=== PATIENT | female | born 1980 | race Caucasian/White ===

== ENCOUNTER 2018-10-22 17:02 | Emergency (ER) | payer OTHER ==
[2018-10-22 17:12] VITALS: BP 121/77
--- NOTE | 2018-10-22 17:42 | UC ---
Respiratory Complaint HPI - HPI Summary HPI Summary: PATIENT COMPLAINS OF ABOUT ONE WEEK OF SINUS CONGESTION, HEADACHE AND FATIGUE. PATIENT HAD SIMILAR SYMPTOMS 2 MONTHS AGO THAT LASTED UNTIL SHE TOOK AND COMPLETED A COURSE OF DOXYCYCLINE 2 WEEKS AGO. SHE FELT BETTER FOR ONE WEEK BEFORE HER SYMPTOMS RETURNED. SHE NOW ALSO COMPLAINS THAT SHE HAS PAIN AROUND HER LEFT EYEBROW AND THAT HER EYEBROW HAIR IS FALLING OUT. SHE DENIES ANY TRAUMA. NO VISUAL DISTURBANCES OR PAIN WITH EXTRAOCULAR MOVEMENTS. NO NAUSEA. NO FEVER. - History of Current Complaint Chief Complaint: UCRespiratory Stated Complaint: SINUS CONGESTION Time Seen by Provider: 10/22/18 17:38 Hx Obtained From: Patient Hx Last Menstrual Period: 10/07/18 Onset/Duration: Gradual Onset, Lasting Days, Still Present Timing: Constant Severity Initially: Moderate Severity Currently: Moderate Pain Intensity: 6 Pain Scale Used: 0-10 Numeric Aggravating Factors: Nothing Alleviating Factors: Nothing Associated Signs And Symptoms: Positive: Sinus Discomfort. Negative: Dyspnea, Fever, Chills, Wheezing - Allergies/Home Medications Allergies/Adverse Reactions: Allergies Allergy/AdvReac Type Severity Reaction Status Date / Time No Known Allergies Allergy Verified 10/22/18 17:13 Home Medications: Home Medications NK [No Home Medications Reported] 10/22/18 [History Confirmed 10/22/18] PMH/Surg Hx/FS Hx/Imm Hx Previously Healthy: Yes - Surgical History Surgical History: None - Family History Known Family History: Positive: Non-Contributory - Social History Alcohol Use: None Substance Use Type: Marijuana Substance Use Comment - Amount & Last Used: yesterday Smoking Status (MU): Former Smoker Household Exposure Type: Cigarettes Review of Systems All Other Systems Reviewed And Are Negative: Yes Constitutional: Positive: Fatigue ENT: Positive: Sinus Congestion Respiratory: Positive: Negative Cardiovascular: Positive: Negative Gastrointestinal: Positive: Negative Neurological: Positive: Headache Physical Exam Triage Information Reviewed: Yes Appearance: Well-Appearing, No Pain Distress, Well-Nourished Vital Signs: Initial Vital Signs Temp 98.6 F 10/22/18 17:09 Pulse 73 10/22/18 17:09 Resp 18 10/22/18 17:09 BP 121/77 10/22/18 17:09 Pulse Ox 100 10/22/18 17:09 Vital Signs Reviewed: Yes Eyes: Positive: Conjunctiva Clear ENT: Positive: Hearing grossly normal, Pharynx normal, TMs normal Neck: Positive: Supple, Nontender, No Lymphadenopathy Respiratory Exam: Normal Cardiovascular Exam: Normal Abdomen Description: Positive: Soft Musculoskeletal: Positive: No Edema Neurological: Positive: Alert Psychological: Positive: Age Appropriate Behavior Skin: Negative: Rashes Respiratory Course/Dx - Course Course Of Treatment: WILL CHECK CBC, CMP, TSH AND ESR. PT TO FOLLOW-UP WITH PCP. NO INDICATION FOR ANY FURTHER ABX AT PRESENT. - Differential Dx/Diagnosis Provider Diagnosis: Fatigue Discharge - Sign-Out/Discharge Documenting (check all that apply): Patient Departure All imaging exams completed and their final reports reviewed: No Studies - Discharge Plan Condition: Stable Disposition: HOME Patient Education Materials: Fatigue (ED) Referrals: Tano Contreras MD [Primary Care Provider] - 1 Week Additional Instructions: UNCLEAR ETIOLOGY OF YOUR SYMPTOMS. CHECK BLOOD COUNT, METABOLIC PANEL AND THYROID TODAY. FOLLOW-UP WITH DR. CONTRERAS FOR CONTINUED WORK-UP. - Billing Disposition and Condition Condition: STABLE Disposition: Home
[2018-10-23 10:07] LABS: ABS Basophils 0 10^3/ul (0-0.2); ABS Eosinophils 0.1 10^3/ul (0-0.6); ABS Lymphocytes 2.7 10^3/ul (1.0-4.8); ABS Monocytes 0.4 10^3/ul (0-0.8); ABS Neutrophils 4.3 10^3/ul (1.5-7.7); ABS Nucleated RBC 0 10^3/ul; Eosinophil % 0.9 %; Hematocrit 38 % (33-41); Hemoglobin 12.7 g/dL (12.0-16.0); Lymphocyte % 35.7 %; Mean Corpuscular HGB Conc 34 g/dL (31-36); Mean Corpuscular Hemoglobin 32 pg (27-31); Mean Corpuscular Volume 96 fL (80-97); Mean Platelet Volume 10.3 fL (7.4-10.4); Nucleated Red Blood Cells % 0; Platelet Count 193 10^3/uL (150-450); Red Blood Count 3.92 10^6 /uL (3.70-4.87); Red Cell Distribution Width 13 % (10.5-15); White Blood Count 7.5 10^3/uL (3.5-10.8)
[2018-10-23 10:23] LABS: Albumin 4.5 g/dL (3.2-5.2); Calcium 9.4 mg/dL (8.6-10.3); Potassium 3.8 mmol/L (3.5-5.0); Total Bilirubin 0.7 mg/dL (0.2-1.0)
[2018-10-23 10:29] LABS: BUN/Creatinine Ratio 15.4 (8-20); EGFR Non-African American 82.7 (>60); Globulin 2.3 g/dL (2-4); Total Protein 6.8 g/dL (6.4-8.9)
[2018-10-23 10:45] LABS: TSH (Thyroid Stimulating Horm) 1.71 mcIU/mL (0.34-5.60)
--- NOTE | 2018-10-23 15:45 | UC ---
- Progress Note Progress Note: 10/23/2018 CBC: WNL. CMP:WNL No change Carlie Mendoza PA-C Course/Dx - Diagnoses Provider Diagnoses: Fatigue Discharge - Sign-Out/Discharge Documenting (check all that apply): Post-Discharge Follow Up All imaging exams completed and their final reports reviewed: No Studies - Discharge Plan Condition: Stable Disposition: HOME Patient Education Materials: Fatigue (ED) Referrals: Tano Contreras MD [Primary Care Provider] - 1 Week Additional Instructions: UNCLEAR ETIOLOGY OF YOUR SYMPTOMS. CHECK BLOOD COUNT, METABOLIC PANEL AND THYROID TODAY. FOLLOW-UP WITH DR. CONTRERAS FOR CONTINUED WORK-UP. - Billing Disposition and Condition Condition: STABLE Disposition: Home
[2018-10-24 07:32] LABS: Erythrocyte Sed Rate 4 mm/Hr (0-20)
== END 2018-10-22 18:19 | disposition home or self-care (01) ==
LOC: UCEAST 17:02
DX: R53.83 Other fatigue (principal); Z87.891 Personal history of nicotine dependence
CPT/HCPCS: 36415; 80053; 84443; 85025; 85652; 99211; G0463

== ENCOUNTER 2019-06-12 13:44 | Emergency (ER) | payer OTHER ==
[2019-06-12 14:06] LABS: ABS Lymphocytes 2.1 10^3/ul (1.0-4.8); ABS Monocytes 0.4 10^3/ul (0-0.8); ABS Neutrophils 3.3 10^3/ul (1.5-7.7); Eosinophil % 0.8 %; Hematocrit 37 % (35-47); Hemoglobin 12.8 g/dL (12.0-16.0); Mean Corpuscular HGB Conc 34 g/dL (31-36); Mean Corpuscular Hemoglobin 33 pg (27-31); Mean Corpuscular Volume 96 fL (80-97); Mean Platelet Volume 9.5 fL (7.4-10.4); Platelet Count 199 10^3/uL (150-450); Red Blood Count 3.86 10^6 /uL (3.70-4.87); Red Cell Distribution Width 12 % (10-15); White Blood Count 5.8 10^3/uL (3.5-10.8)
[2019-06-12 14:30] LABS: INR 1.05 (0.82-1.09)
[2019-06-12 14:48] LABS: ALT 12 U/L (7-52); AST 16 U/L (13-39); Albumin 4.1 g/dL (3.2-5.2); Albumin/Globulin Ratio 1.5 (1-3); Alkaline Phosphatase 56 U/L (34-104); Anion Gap 4 mmol/L (2-11); BUN/Creatinine Ratio 11.6 (8-20); Blood Urea Nitrogen 14 mg/dL (6-24); CO2 Carbon Dioxide 27 mmol/L (22-32); Calcium 9.1 mg/dL (8.6-10.3); Chloride 107 mmol/L (101-111); EGFR African American 59.9 (>60); EGFR Non-African American 49.5 (>60); Globulin 2.8 g/dL (2-4); Glucose 84 mg/dL (70-100); Potassium 3.6 mmol/L (3.5-5.0); Sodium 138 mmol/L (135-145); Total Protein 6.9 g/dL (6.4-8.9)
[2019-06-12 16:35] LABS: HCG Pregnancy < 0.60 mIU/mL
[2019-06-12 16:40] LABS: T4, Total 8.22 mcg/dL (6.09-12.23)
[2019-06-12 16:43] LABS: TSH (Thyroid Stimulating Horm) 1.31 mcIU/mL (0.34-5.60)
[2019-06-12 17:03] LABS: Urine Appearance Clear; Urine Bacteria Absent (Absent); Urine Bilirubin Negative (Negative); Urine Blood 1+ (Negative); Urine Color Colorless; Urine Glucose Negative (Negative); Urine Ketones Negative (Negative); Urine Nitrite Negative (Negative); Urine Protein Negative (Negative); Urine Red Blood Cell Trace(0-2/hpf) (Absent); Urine Specific Gravity 1.003 (1.010-1.030); Urine Squamous Epithelial Cell Present (Absent); Urine Urobilinogen Negative (Negative); Urine White Blood Cell Absent (Absent)
--- NOTE | 2019-06-12 17:53 | ED ---
HPI Chest Pain - HPI Summary HPI Summary: Patient complains of left-sided chest pain radiating to left side ribs and left side shoulder starting at rest last night. Patient states chest pain described as shooting pain lasting seconds at a time, occurring every 15 minutes. No associated SOB. Also complains of not being able to finish meals past 2 days. Occasional worsening of left side pain after eating. Also worse with movement. Also complains of intermittent headache 2 days, intermittent neck pain 2 days, in urinary frequency. Denies fever, cough, sore throat, SOB, N/3/D, abdominal pain, change in BM. Denies history of blood clots, recent travel, recent surgery or trauma, hemoptysis, unilateral leg pain, OCPs or estrogen supplements, . - History of Current Complaint Chief Complaint: EDChestPainROMI Time Seen by Provider: 06/12/19 15:58 Hx Obtained From: Patient Hx Last Menstrual Period: 10/07/18 Onset/Duration: Started Hours Ago Timing: Intermittent, Lasting Seconds Initial Severity: Moderate Current Severity: Mild Pain Intensity: 2 Pain Scale Used: 0-10 Numeric Chest Pain Location: Left Anterior Chest Pain Radiates: Yes Chest Pain Radiates To:: Shoulder Character: Sharp/Stabbing Aggravating Factor(s): Position Alleviating Factor(s): Position Associated Signs and Symptoms: Positive: Chest Pain - Allergy/Home Medications Allergies/Adverse Reactions: Allergies Allergy/AdvReac Type Severity Reaction Status Date / Time wheat Allergy Anaphylatic Verified 06/12/19 13:54 Shock Home Medications: Home Medications Dextroamphetamine (NF) TAB [Dexedrine TAB*] 5 mg PO DAILY 06/12/19 [History Confirmed 06/12/19] Dextroamphetamine ER (Nf) 15 mg PO DAILY 06/12/19 [History Confirmed 06/12/19] clonazePAM TAB(*) [KlonoPIN TAB(*)] 0.5 mg PO BEDTIME PRN 06/12/19 [History Confirmed 06/12/19] PMH/Surg Hx/FS Hx/Imm Hx Endocrine/Hematology History: Denies: Hx Anticoagulant Therapy Cardiovascular History: Denies: Hx Pacemaker/ICD History: Denies: Hx Dialysis Sensory History: Denies: Hx Eye Prosthesis Opthamlomology History: Denies: Hx Legally Blind EENT History: Denies: Hx Deafness Neurological History: Denies: Hx Dementia Infectious Disease History: No Infectious Disease History: Denies: Traveled Outside the [place] in Last 30 Days - Family History Known Family History: Positive: Non-Contributory - Social History Alcohol Use: None Substance Use Type: Reports: Marijuana Substance Use Comment - Amount & Last Used: yesterday Smoking Status (MU): Former Smoker Review of Systems Constitutional: Negative Eyes: Negative ENT: Negative Positive: Chest Pain Respiratory: Negative Gastrointestinal: Negative Positive: frequency Musculoskeletal: Negative Skin: Negative Positive: Headache Psychological: Normal All Other Systems Reviewed And Are Negative: Yes Physical Exam - Summary Physical Exam Summary: Left anterior chest mildly tender to palpation. No pain with movement of left arm. No pain with palpation of left shoulder or left side lateral chest wall. Mild pain in left upper quadrant and epigastrically. Normal exam of other abdominal quadrants. Triage Information Reviewed: Yes Vital Signs On Initial Exam: Initial Vitals Temp Pulse Resp BP Pulse Ox 98.2 F 80 16 127/72 100 06/12/19 13:52 06/12/19 13:52 06/12/19 13:52 06/12/19 13:52 06/12/19 13:52 Vital Signs Reviewed: Yes Appearance: Positive: Well-Appearing Skin: Positive: Warm Head/Face: Positive: Normal Head/Face Inspection Eyes: Positive: Normal Neck: Positive: Supple Respiratory/Lung Sounds: Positive: Clear to Auscultation Cardiovascular: Positive: Normal Abdomen Description: Positive: Other: Musculoskeletal: Positive: Normal Neurological: Positive: Normal Psychiatric: Positive: Normal AVPU Assessment: Alert - Courtney Coma Scale Best Eye Response: 4 - Spontaneous Best Motor Response: 6 - Obeys Commands Best Verbal Response: 5 - Oriented Coma Scale Total: 15 Procedures - Sedation Patient Received Moderate/Deep Sedation with Procedure: No Diagnostics - Vital Signs Vital Signs Temp Pulse Resp BP Pulse Ox 06/12/19 13:52 98.2 F 80 16 127/72 100 - Laboratory Lab Results: Lab Results 06/12/19 06/12/19 06/12/19 Range/Units 13:58 13:58 13:58 WBC 5.8 (3.5-10.8) 10^3/uL RBC 3.86 (3.70-4.87) 10^6 /uL Hgb 12.8 (12.0-16.0) g/dL Hct 37 (35-47) % MCV 96 (80-97) fL MCH 33 H (27-31) pg MCHC 34 (31-36) g/dL RDW 12 (10-15) % Plt Count 199 (150-450) 10^3/uL MPV 9.5 (7.4-10.4) fL Neut % (Auto) 56.4 % Lymph % (Auto) 36.0 % Clay % (Auto) 6.4 % Eos % (Auto) 0.8 % Baso % (Auto) 0.4 % Absolute Neuts (auto) 3.3 (1.5-7.7) 10^3/ul Absolute Lymphs (auto) 2.1 (1.0-4.8) 10^3/ul Absolute Monos (auto) 0.4 (0-0.8) 10^3/ul Absolute Eos (auto) 0.0 (0-0.6) 10^3/ul Absolute Basos (auto) 0.0 (0-0.2) 10^3/ul Absolute Nucleated RBC 0.0 10^3/ul Nucleated RBC % 0.0 INR (Anticoag Therapy) 1.05 (0.82-1.09) Sodium 138 (135-145) mmol/L Potassium 3.6 (3.5-5.0) mmol/L Chloride 107 (101-111) mmol/L Carbon Dioxide 27 (22-32) mmol/L Anion Gap 4 (2-11) mmol/L BUN 14 (6-24) mg/dL Creatinine 1.21 H (0.51-0.95) mg/dL Est GFR ( Amer) 59.9 (>60) Est GFR (Non-Af Amer) 49.5 (>60) BUN/Creatinine Ratio 11.6 (8-20) Glucose 84 (70-100) mg/dL Calcium 9.1 (8.6-10.3) mg/dL Total Bilirubin 0.50 (0.2-1.0) mg/dL AST 16 (13-39) U/L ALT 12 (7-52) U/L Alkaline Phosphatase 56 (34-104) U/L Troponin I 0.00 (<0.04) ng/mL Total Protein 6.9 (6.4-8.9) g/dL Albumin 4.1 (3.2-5.2) g/dL Globulin 2.8 (2-4) g/dL Albumin/Globulin Ratio 1.5 (1-3) Lipase 17 (11.0-82.0) U/L TSH 1.31 (0.34-5.60) mcIU/mL Thyroxine (T4) 8.22 (6.09-12.23) mcg/dL Total T3 105 (87-178) ng/dL Beta HCG, Quant < 0.60 mIU/mL Urine Color Urine Appearance Urine pH (5-9) Ur Specific [place] (1.010-1.030) Urine Protein (Negative) Urine Ketones (Negative) Urine Blood (Negative) Urine Nitrate (Negative) Urine Bilirubin (Negative) Urine Urobilinogen (Negative) Ur Leukocyte Esterase (Negative) Urine WBC (Auto) (Absent) Urine RBC (Auto) (Absent) Ur Squamous Epith Cells (Absent) Urine Bacteria (Absent) Urine Glucose (Negative) 06/12/19 Range/Units 16:35 WBC (3.5-10.8) 10^3/uL RBC (3.70-4.87) 10^6 /uL Hgb (12.0-16.0) g/dL Hct (35-47) % MCV (80-97) fL MCH (27-31) pg MCHC (31-36) g/dL RDW (10-15) % Plt Count (150-450) 10^3/uL MPV (7.4-10.4) fL Neut % (Auto) % Lymph % (Auto) % Clay % (Auto) % Eos % (Auto) % Baso % (Auto) % Absolute Neuts (auto) (1.5-7.7) 10^3/ul Absolute Lymphs (auto) (1.0-4.8) 10^3/ul Absolute Monos (auto) (0-0.8) 10^3/ul Absolute Eos (auto) (0-0.6) 10^3/ul Absolute Basos (auto) (0-0.2) 10^3/ul Absolute Nucleated RBC 10^3/ul Nucleated RBC % INR (Anticoag Therapy) (0.82-1.09) Sodium (135-145) mmol/L Potassium (3.5-5.0) mmol/L Chloride (101-111) mmol/L Carbon Dioxide (22-32) mmol/L Anion Gap (2-11) mmol/L BUN (6-24) mg/dL Creatinine (0.51-0.95) mg/dL Est GFR ( Amer) (>60) Est GFR (Non-Af Amer) (>60) BUN/Creatinine Ratio (8-20) Glucose (70-100) mg/dL Calcium (8.6-10.3) mg/dL Total Bilirubin (0.2-1.0) mg/dL AST (13-39) U/L ALT (7-52) U/L Alkaline Phosphatase (34-104) U/L Troponin I (<0.04) ng/mL Total Protein (6.4-8.9) g/dL Albumin (3.2-5.2) g/dL Globulin (2-4) g/dL Albumin/Globulin Ratio (1-3) Lipase (11.0-82.0) U/L TSH (0.34-5.60) mcIU/mL Thyroxine (T4) (6.09-12.23) mcg/dL Total T3 (87-178) ng/dL Beta HCG, Quant mIU/mL Urine Color Colorless Urine Appearance Clear Urine pH 7.0 (5-9) Ur Specific [place] 1.003 L (1.010-1.030) Urine Protein Negative (Negative) Urine Ketones Negative (Negative) Urine Blood 1+ A (Negative) Urine Nitrate Negative (Negative) Urine Bilirubin Negative (Negative) Urine Urobilinogen Negative (Negative) Ur Leukocyte Esterase Negative (Negative) Urine WBC (Auto) Absent (Absent) Urine RBC (Auto) Trace(0-2/hpf) (Absent) Ur Squamous Epith Cells Present A (Absent) Urine Bacteria Absent (Absent) Urine Glucose Negative (Negative) Result Diagrams: 06/12/19 13:58 06/12/19 13:58 Lab Statement: Any lab studies that have been ordered have been reviewed, and results considered in the medical decision making process. Chest Pain Course/Dx - Course Course Of Treatment: Patient complains of left-sided chest pain radiating to left side ribs and left side shoulder starting at rest last night. Patient states chest pain described as shooting pain lasting seconds at a time, occurring every 15 minutes. No associated SOB. Also complains of not being able to finish meals past 2 days. Occasional worsening of left side pain after eating. Also worse with movement. Also complains of intermittent headache 2 days, intermittent neck pain 2 days, in urinary frequency. Denies fever, cough , sore throat, SOB, N/3/D, abdominal pain, change in BM. Denies history of blood clots, recent travel, recent surgery or trauma, hemoptysis, unilateral leg pain, OCPs or estrogen supplements, . Vital signs within normal limits. Labs unremarkable. Urine negative. PERC negative. Ultrasound gallbladder negative. EKG sinus rhythm, heart rate of 70, same as prior. - Diagnoses Provider Diagnoses: Atypical chest pain Discharge ED - Sign-Out/Discharge Documenting (check all that apply): Patient Departure - Discharge Plan Condition: Stable Disposition: HOME Patient Education Materials: Chest Wall Pain (ED) Referrals: Su Sanchez MD [Primary Care Provider] - Additional Instructions: Take ibuprofen 600mg every 6 hours for 3 days for left side chest pain. Return to the ED for any worsening symptoms. - Billing Disposition and Condition Condition: STABLE Disposition: Home
[2019-06-12 18:06] VITALS: BP 00/00
== END 2019-06-12 18:20 | disposition home or self-care (01) ==
LOC: ED 13:44
DX: R07.89 Other chest pain (principal); R10.12 Left upper quadrant pain; R10.13 Epigastric pain; R51 Headache; M54.2 Cervicalgia; R35.0 Frequency of micturition; K76.0 Fatty (change of) liver, not elsewhere classified; Z32.02 Encounter for pregnancy test, result negative; Z87.891 Personal history of nicotine dependence
CPT/HCPCS: 36415; 76705; 80053; 81003; 81015; 83690; 84436; 84443; 84479; 84484; 84702; 85025; 85610; 93005; 99282

== ENCOUNTER 2019-06-15 14:44 | Emergency (ER) | payer OTHER ==
--- NOTE | 2019-06-15 16:14 | ED ---
Complex/Multi-Sys Presentation - HPI Summary HPI Summary: This patient is a 38 year old F with a hx of kidney stones presenting to ED with a chief complaint of intermittent left flank pain since one month ago. Patient states three days ago, the pain radiated upwards to the left shoulder, and with twisting or bending it is described as stabbing. Patient came to [facility] three days ago and received a gallbladder US which was negative. Today, patient states the pain feels like a pressure in her left chest and abdominal cavity. Patient also reports decreased appetite in the past two months recently. [place] Patient states she is not sexually active. She reports her menstrual cycle is very normal. Patient has been once when she was 20 which she had electively aborted by a procedure that she does not remember in too much detail. The patient rates the pain 3/10 in severity. Symptoms aggravated by bending/movement. Symptoms alleviated by nothing. Patient reports hematuria, dizziness, nausea. Patient denies dysuria, burning upon urination, vaginal bleeding, vaginal discharge, vomiting. - History Of Current Complaint Chief Complaint: EDChestWallPain Time Seen by Provider: 06/15/19 15:59 Hx Obtained From: Patient Onset/Duration: Gradual Onset, Lasting Weeks - Since one month ago, Still Present Timing: Intermittent, Lasting: Severity Currently: Mild Severity Initially: Mild Location: Pain At: - Left flank Aggravating Factor(s): Nothing Alleviating Factor(s): Nothing Associated Signs And Symptoms: Positive: Nausea, Other - Hematuria, L flank pain. Negative: Vomiting - Allergies/Home Medications Allergies/Adverse Reactions: Allergies Allergy/AdvReac Type Severity Reaction Status Date / Time wheat Allergy Anaphylatic Verified 06/15/19 14:53 Shock PMH/Surg Hx/FS Hx/Imm Hx Endocrine/Hematology History: Denies: Hx Anticoagulant Therapy Cardiovascular History: Denies: Hx Pacemaker/ICD History: Reports: Hx Kidney Stones Denies: Hx Dialysis Sensory History: Denies: Hx Eye Prosthesis, Hx Legally Blind, Hx Deafness Opthamlomology History: Denies: Hx Eye Prosthesis, Hx Legally Blind Neurological History: Denies: Hx Dementia - Surgical History Surgery Procedure, Year, and Place: Infectious Disease History: No Infectious Disease History: Denies: Traveled Outside the [place] in Last 30 Days - Family History Known Family History: Positive: Other - Kidney stones - Social History Alcohol Use: None Hx Substance Use: Yes Substance Use Type: Reports: Marijuana Substance Use Comment - Amount & Last Used: Daily, patient uses marijuana edibles Hx Tobacco Use: Yes Smoking Status (MU): Former Smoker Review of Systems Gastrointestinal: Other - Decreased appetite Positive: Nausea. Negative: Vomiting Genitourinary: Negative - Vaginal bleeding, vaginal discharge Positive: flank pain - L, hematuria. Negative: burning, dysuria Musculoskeletal: Other - L shoulder pain Neurological: Other - Dizziness All Other Systems Reviewed And Are Negative: Yes Physical Exam - Summary Physical Exam Summary: Constitutional: Well-developed, Well-nourished, Alert. (-) Distressed Skin: Warm, Dry HENT: Normocephalic; Atraumatic Eyes: Conjunctiva normal Neck: Musculoskeletal ROM normal neck. (-) JVD, (-) Stridor, (-) Tracheal deviation Cardio: Rhythm regular, rate normal, Heart sounds normal; Intact distal pulses; The pedal pulses are 2+ and symmetric. Radial pulses are 2+ and symmetric. Pulmonary/Chest wall: Effort normal. (-) Respiratory distress, (-) Wheezes, (-) Rales Abd: left CVA tenderness, suprapubic fullness but nontender Musculoskeletal: (-) Edema Neuro: Alert, Oriented x3 Psych: Mood and affect Normal Triage Information Reviewed: Yes Vital Signs On Initial Exam: Initial Vitals Temp Pulse Resp BP Pulse Ox 99.0 F 81 18 127/65 99 06/15/19 14:50 06/15/19 14:50 06/15/19 14:50 06/15/19 14:50 06/15/19 14:50 Vital Signs Reviewed: Yes Procedures - Sedation Patient Received Moderate/Deep Sedation with Procedure: No Diagnostics - Vital Signs Vital Signs Temp Pulse Resp BP Pulse Ox 06/15/19 14:50 99.0 F 81 18 127/65 99 - Laboratory Result Diagrams: 06/15/19 16:25 06/15/19 16:25 Lab Statement: Any lab studies that have been ordered have been reviewed, and results considered in the medical decision making process. - Ultrasound Abdomen Ultrasound Interpretation Completed By: Radiologist Summary of Ultrasound Findings: 1. THE URINARY JETS ARE PRESENT BILATERALLY. 2. 2 HYPERECHOIC FOCI IN THE LEFT KIDNEY (BETWEEN 0.4-0.5 CM) COULD BE REDEVELOPMENT SPECIALIST OF NONS HADOW ING CALCULI. THE LEFT RENAL PELVIS IS MILDLY DILATED. 3. A SMALL PROBABLE ANGIOMYOLIPOMA IN THE INFERIOR POLE THE RIGHT KIDNEY IS INCIDENTAL. Dr. Vazquez has reviewed this radiology report. - EKG 1448 Cardiac Rate: NL - 71 BPM EKG Rhythm: Sinus Rhythm Summary of EKG Findings: EKG at 1448 revealed NSR at 71 BPM, borderline right axis deviation, no STEMI, no change from prior. Dr. Vazquez has reviewed and interpreted this EKG. Re-Evaluation - Re-Evaluation First Eval Re-Evaluation Time: 18:42 Comment: Discussed results with patient. Patient will be discharged home with dx of renal colic. Patient understands and agrees with this plan. Complex Multi-Symp Course/Dx Course Of Treatment: This patient is a 38 year old F with a hx of kidney stones presenting to ED with a chief complaint of intermittent left flank pain since one month ago. In the ED course, patient received lactated ringers. She refused pain medication. Blood work revealed RBC 3.64, Hgb 11.8, MCH 33. Patients GFR is 86 and creatinine is 0.75, both of which are better than they have been recently. EKG at 1448 revealed NSR at 71 BPM, borderline right axis deviation, no STEMI, no change from prior. Abdomen/bladder US revealed 1. THE URINARY JETS ARE PRESENT BILATERALLY. 2. 2 HYPERECHOIC FOCI IN THE LEFT KIDNEY ( BETWEEN 0.4-0.5 CM) COULD BE REDEVELOPMENT SPECIALIST OF NONS HADOW ING CALCULI. THE LEFT RENAL PELVIS IS MILDLY DILATED. 3. A SMALL PROBABLE ANGIOMYOLIPOMA IN THE INFERIOR POLE THE RIGHT KIDNEY IS INCIDENTAL. UA negative for UTI. Post-void residual volume is 20mL, so I do not think the patient is having urinary retention as the patient has urinary jets present bilaterally. Discussed results with patient. Patient will be discharged home with dx of renal colic. Patient understands and agrees with this plan. - Diagnoses Provider Diagnoses: Renal colic Discharge ED - Sign-Out/Discharge Documenting (check all that apply): Patient Departure - Discharge - Discharge Plan Condition: Stable Disposition: HOME Patient Education Materials: Renal Colic (ED) Referrals: Su Sanchez MD [Primary Care Provider] - - Billing Disposition and Condition Condition: STABLE Disposition: Home - Attestation Statements Document Initiated by Scribe: Yes Documenting Scribe: Kashif Muñoz Provider For Whom Danyibe is Documenting (Include Credential): Guilherme Vazquez MD Scribe Attestation: I, Kashif Muñoz, scribed for Guilherme Vazquez MD on 06/15/19 at 1913. Scribe Documentation Reviewed: Yes Provider Attestation: The documentation as recorded by the scribe, Kashif Muñoz accurately reflects the service I personally performed and the decisions made by me, Guilherme Vazquez MD Status of Scribe Document: Viewed
[2019-06-15] MEDS ORDERED: Lactated Ringers 1000 ML Bag* 1,000 ML IV ONE (16:26)
[2019-06-15 16:43] LABS: ABS Eosinophils 0.1 10^3/ul (0-0.6); ABS Lymphocytes 2.4 10^3/ul (1.0-4.8); ABS Monocytes 0.4 10^3/ul (0-0.8); ABS Neutrophils 3.6 10^3/ul (1.5-7.7); Eosinophil % 0.8 %; Hematocrit 35 % (35-47); Hemoglobin 11.8 g/dL (12.0-16.0); Lymphocyte % 37.6 %; Mean Corpuscular HGB Conc 34 g/dL (31-36); Mean Corpuscular Hemoglobin 33 pg (27-31); Mean Corpuscular Volume 96 fL (80-97); Mean Platelet Volume 9.5 fL (7.4-10.4); Nucleated Red Blood Cells % 0.1; Platelet Count 183 10^3/uL (150-450); Red Blood Count 3.64 10^6 /uL (3.70-4.87); Red Cell Distribution Width 12 % (10-15); White Blood Count 6.5 10^3/uL (3.5-10.8)
[2019-06-15 16:48] LABS: INR 1.09 (0.82-1.09)
[2019-06-15 16:55] LABS: Albumin 4.1 g/dL (3.2-5.2); Albumin/Globulin Ratio 1.5 (1-3); BUN/Creatinine Ratio 17.3 (8-20); Calcium 9.2 mg/dL (8.6-10.3); EGFR African American 104.1 (>60); Globulin 2.7 g/dL (2-4); Potassium 3.5 mmol/L (3.5-5.0); Total Bilirubin 0.4 mg/dL (0.2-1.0); Total Protein 6.8 g/dL (6.4-8.9)
[2019-06-15 18:37] LABS: Urine Appearance Clear; Urine Bilirubin Negative (Negative); Urine Blood Negative (Negative); Urine Color Straw; Urine Glucose Negative (Negative); Urine Ketones Negative (Negative); Urine Nitrite Negative (Negative); Urine Protein Negative (Negative); Urine Specific Gravity 1.006 (1.010-1.030); Urine Urobilinogen Negative (Negative)
[2019-06-15 19:03] VITALS: BP 116/88
== END 2019-06-15 19:03 | disposition home or self-care (01) ==
LOC: ED 14:44
DX: N23 Unspecified renal colic (principal); Z87.891 Personal history of nicotine dependence; Z87.442 Personal history of urinary calculi
CPT/HCPCS: 36415; 76770; 80053; 81003; 84484; 85025; 85610; 93005; 96360; 99283

== ENCOUNTER 2019-09-13 14:35 | Emergency (ER) | payer OTHER ==
--- NOTE | 2019-09-13 15:18 | ED ---
GI/ HPI - HPI Summary HPI Summary: Patient is a 38 y/o F presenting to [facility] with complaints of epigastric pain. She believes that she accidentally swallowed some chips of glass with her lunch today. Patient states that she had spit out one of these pieces of glass and slightly cut her finger with it. Pain is characterized as sharp. No vomiting noted. No PMHx noted. She denies Hx of abdominal surgeries. NKDA reported. She denies tobacco, alcohol, and substance usage. Home medications and allergies are reviewed. - History of Current Complaint Chief Complaint: EDAbdPain Time Seen by Provider: 09/13/19 15:02 Stated Complaint: ACCIDENTLY ATE GLASS PER PT Hx Obtained From: Patient Hx Last Menstrual Period: 10/07/18 Onset/Duration: Still Present Timing: Constant Severity: Severe Current Severity: Severe Pain Intensity: 7 Location of Pain: Epigastric Pain Characteristics: Sharp Associated Signs and Symptoms: Negative: Vomiting, Fever - Allergy/Home Medications Allergies/Adverse Reactions: Allergies Allergy/AdvReac Type Severity Reaction Status Date / Time wheat Allergy Anaphylatic Verified 09/13/19 14:47 Shock Home Medications: Home Medications Albuterol HFA INHALER* [Ventolin HFA Inhaler*] 2 puff INH Q6H PRN 09/13/19 [ History Confirmed 09/13/19] DOXYcycline CAP(*) [DOXYcycline 100MG CAP(*)] 100 mg PO BID 09/13/19 [History Confirmed 09/13/19] PMH/Surg Hx/FS Hx/Imm Hx Endocrine/Hematology History: Denies: Hx Anticoagulant Therapy Cardiovascular History: Denies: Hx Pacemaker/ICD History: Reports: Hx Kidney Stones Denies: Hx Dialysis Sensory History: Denies: Hx Eye Prosthesis, Hx Legally Blind, Hx Deafness Opthamlomology History: Denies: Hx Eye Prosthesis, Hx Legally Blind Neurological History: Denies: Hx Dementia - Surgical History Surgery Procedure, Year, and Place: Infectious Disease History: No Infectious Disease History: Denies: Traveled Outside the [place] in Last 30 Days - Family History Known Family History: Positive: Other - Kidney stones - Social History Alcohol Use: None Hx Substance Use: Yes Substance Use Type: Reports: Marijuana Substance Use Comment - Amount & Last Used: Daily, patient uses marijuana edibles Hx Tobacco Use: Yes Smoking Status (MU): Former Smoker Review of Systems Negative: Fever Positive: Abdominal Pain. Negative: Vomiting All Other Systems Reviewed And Are Negative: Yes Physical Exam - Summary Physical Exam Summary: Constitutional: Well-developed, Well-nourished, Alert. (-) Distressed Skin: Warm, Dry HENT: Normocephalic; Atraumatic Eyes: Conjunctiva normal Neck: Musculoskeletal ROM normal neck. (-) JVD, (-) Stridor, (-) Tracheal deviation Cardio: Rhythm regular, rate normal, Heart sounds normal; Intact distal pulses; Radial pulses are 2+ and symmetric. (-) Murmur Pulmonary/Chest wall: Effort normal. (-) Respiratory distress, (-) Wheezes, (-) Rales Abd: Soft, Mild Epigastric Tenderness, (-) Distension, (-) Guarding, (-) Rebound Musculoskeletal: (-) Edema Lymph: (-) Cervical adenopathy Neuro: Alert, Oriented x3 Psych: Mood and affect Normal Triage Information Reviewed: Yes Vital Signs On Initial Exam: Initial Vitals Temp Pulse Resp BP Pulse Ox 99.8 F 87 17 105/76 97 09/13/19 14:43 09/13/19 14:43 09/13/19 14:43 09/13/19 14:43 09/13/19 14:43 Vital Signs Reviewed: Yes Procedures - Sedation Patient Received Moderate/Deep Sedation with Procedure: No Diagnostics - Vital Signs Vital Signs Temp Pulse Resp BP Pulse Ox 09/13/19 14:43 99.8 F 87 17 105/76 97 - Laboratory Result Diagrams: 09/13/19 15:18 09/13/19 15:18 Lab Statement: Any lab studies that have been ordered have been reviewed, and results considered in the medical decision making process. - Radiology CXR Radiology Interpretation Completed By: Radiologist Summary of Radiographic Findings: CXR IMPRESSION: NO ACTIVE CARDIOPULMONARY DISEASE. NO RADIOPAQUE FOREIGN BODY. THIS REPORT WAS REVIEWED BY ED PHYSICIAN. ABDOMEN X-RAY Radiology Interpretation Completed By: Radiologist Summary of Radiographic Findings: ABDOMEN X-RAY IMPRESSION: NONOBSTRUCTIVE BOWEL GAS PATTERN. LARGE AMOUNT OF STOOL THROUGHOUT THE COLON. NO. RADIOPAQUE FOREIGN BODY. THIS REPORT WAS REVIEWED BY ED PHYSICIAN. GIGU Course/Dx - Course Course Of Treatment: Patient is here after actually swallowed some glass. Patient does have epigastric pain. Patient had x-rays to hypertension and 5 or body which were negative. Patient wasn't [facility] a GI was called and they performed an endoscopy which did not show any foreign body. - Diagnoses Provider Diagnoses: Foreign body ingestion - Physician Notifications Discussed Care Of Patient With: Palma Toribio Time Discussed With Above Provider: 16:17 Instructed by Provider To: Other - Patient's case was discussed with Dr. Pallavi Hurd, Dr Toribio to do upper endoscopy in ED. 1823 - GI procedure completed, patient to be discharged to home. Discharge ED - Sign-Out/Discharge Documenting (check all that apply): Patient Departure - discharge - Discharge Plan Condition: Stable Disposition: HOME Patient Education Materials: Acute Abdominal Pain (ED), Foreign Body Ingestion (ED) Referrals: Su Sanchez MD [Primary Care Provider] - 3 Days Additional Instructions: TAKE MAALOX FOR PAIN. RETURN TO ED FOR SEVERE ABDOMINAL PAIN, VOMITING BLOOD, OR ANY OTHER CONCERNING SYMPTOMS. PLEASE FOLLOW UP WITH YOUR PRIMARY CARE PHYSICIAN WITHIN THREE DAYS. - Billing Disposition and Condition Condition: STABLE Disposition: Home - Attestation Statements Document Initiated by Daniel: Yes Documenting Scribe: TRENT JIMENEZ Provider For Whom Daniel is Documenting (Include Credential): SHAGUFTA SIERRA MD Scribe Attestation: TRENT Payne, scribed for SHAGUFTA SIERRA MD on 09/13/19 at 2117. Scribe Documentation Reviewed: Yes Provider Attestation: The documentation as recorded by the TRENT trinidad accurately reflects the service I personally performed and the decisions made by me, SHAGUFTA SIERRA MD Status of Scribe Document: Viewed
[2019-09-13 15:37] LABS: ABS Basophils 0.1 10^3/ul (0-0.2); ABS Eosinophils 0.1 10^3/ul (0-0.6); ABS Lymphocytes 2.4 10^3/ul (1.0-4.8); ABS Monocytes 0.4 10^3/ul (0-0.8); ABS Neutrophils 3.5 10^3/ul (1.5-7.7); Eosinophil % 1.2 %; Hematocrit 36 % (35-47); Hemoglobin 12.2 g/dL (12.0-16.0); Lymphocyte % 37.7 %; Mean Corpuscular HGB Conc 34 g/dL (31-36); Mean Corpuscular Hemoglobin 33 pg (27-31); Mean Corpuscular Volume 95 fL (80-97); Mean Platelet Volume 9.4 fL (7.4-10.4); Platelet Count 213 10^3/uL (150-450); Red Blood Count 3.75 10^6 /uL (3.70-4.87); Red Cell Distribution Width 13 % (10-15); White Blood Count 6.5 10^3/uL (3.5-10.8)
[2019-09-13 16:02] LABS: Anion Gap 6 mmol/L (2-11); BUN/Creatinine Ratio 17.3 (8-20); Blood Urea Nitrogen 13 mg/dL (6-24); CO2 Carbon Dioxide 27 mmol/L (22-32); Calcium 9.3 mg/dL (8.6-10.3); Chloride 106 mmol/L (101-111); EGFR African American 104.1 (>60); Glucose 92 mg/dL (70-100); Potassium 3.8 mmol/L (3.5-5.0); Sodium 139 mmol/L (135-145)
[2019-09-13 16:17] LABS: HCG Pregnancy < 0.60 mIU/mL
[2019-09-13] MEDS ORDERED: fentaNYL* 50 MCG/ML 2 ML VIAL (100 MCG VIAL) ONE (16:41)
[2019-09-13] MEDS ORDERED: Midazolam* 1 MG/ML 10 ML VIAL (10 MG) ONE (16:41)
[2019-09-13] MEDS ORDERED: diPHENhydraMINE IV* 50 MG/ML 1 ml VIAL (BENADRYL) ONE (17:33)
[2019-09-13] MEDS ORDERED: Al Hydrox/Mg Hydrox/Simet LIQ* 30 ML UDC PO ONE (17:56)
[2019-09-13 18:57] VITALS: BP 101/68
--- NOTE | 2019-09-13 20:14 | CONS ---
GASTROENTEROLOGY CONSULT REPORT: DATE OF CONSULT: 09/13/19 REQUESTING PROVIDER: ED. The patient seen in the ED. REASON FOR CONSULT: The patient concerned she ate glass accidently. HISTORY OF PRESENT ILLNESS: Ms. Adams is a 38-year-old woman with history of kidney stones and insomnia, who presents to the ED after she is concerned that she ingested glass. The patient was eating guacamole out of a glass bowl today. She noticed that most of her bites were crunchy. She reached into her mouth to grab a piece of the food out and cut her finger on what appeared to be a piece of glass. She then inspected the bowl and noted that there was a small piece of the glass that was broken. She is concerned that she did swallow some of the crunchy- tasting guacamole as she is worried it may have type glass in it. She now had some epigastric discomfort. No nausea or vomiting. Complains of some indigestion feeling. Temperature 99.8. Vitals otherwise normal. Labs normal. Chest x-ray was negative. Abdominal x-ray demonstrated a large amount of stool throughout the colon without other acute findings. PAST MEDICAL HISTORY: 1. Nephrolithiasis. 2. Insomnia. PAST SURGICAL HISTORY: Cyst from above her eye removed, left knee surgery, bunionectomy. HOME MEDICATIONS: Currently on doxycycline for throat infection. ALLERGIES: WHEAT. FAMILY HISTORY: No relevant family history. SOCIAL HISTORY: Not currently working. Nonsmoker. No alcohol use. No drug use. REVIEW OF SYSTEMS: A complete review of systems negative except as mentioned above. PHYSICAL EXAM: Vital Signs: Temp 99.8, heart rate in the 70s, blood pressure 108/74, 100% on room air. General: Pleasant, well-appearing woman, in no acute distress. HEENT: Mucous membranes are moist. Cardiovascular: Regular rate and rhythm. Pulmonary: Breathing comfortably. Abdomen: Soft. Mildly tender in the epigastric area. No guarding or rebound tenderness. Extremities : No edema. Skin: No jaundice. Neuro: A and O x3. LABORATORY DATA: Labs reviewed and normal. IMAGING: Imaging as mentioned in the HPI, the chest x-ray was negative for acute findings. The abdominal x-ray noted a nonobstructive stool pattern with large amount of stool IMPRESSION AND RECOMMENDATIONS: Ms. Adams is a 38-year-old woman who presents after possibly ingesting a small piece of glass accidently. The patient does have some ongoing tenderness in her epigastric area. We will plan for quick EGD in the ER to ensure that there is no visible pieces of glass seen in the upper GI tract. Reviewed risk of the procedure. The patient in agreement with proceeding with this plan. Thank you very much for this consult. [id number]/[facility] #: [id number] LAYNE
--- NOTE | 2019-09-14 10:14 | PRO ---
DATE OF PROCEDURE: 09/13/19 - EMERGENCY DEPT PROCEDURE: EGD. REFERRING PROVIDER: ED. INDICATION: The patient concerned that she ingested a small piece of glass. Having epigastric pain. MEDICATIONS GIVEN: 1. Midazolam 50 mg IV. 2. Fentanyl 150 mcg IV. 3. Benadryl 50 mg IV. DESCRIPTION OF PROCEDURE: Full disclosure of risks was reviewed with the patient as detailed on the consent form. The patient was placed in the left lateral decubitus position and monitored with continuous pulse oximetry, capnography, interval blood pressure monitoring, and direct observation. A bite -block was placed between the patient's teeth. An adult gastroscope was then inserted into the patient's mouth and advanced down the esophagus, into the stomach, and into the distal duodenum. Findings and interventions are described below. FINDINGS: Esophagus was a normal tubular structure without rings or strictures. The GE junction was regular and recorded at 39 cm. There was no esophagitis. No abrasions or evidence of glass anywhere within the esophagus. The scope was then advanced into the stomach. Stomach was examined in the forward and retroflexed views. Gastric mucosa was normal in appearance. I examined the stomach very thoroughly on several sweeps. There was no evidence of any pieces of glass embedded in the gastric mucosa. No evidence of glass seen within the stomach contents, which were completely suctioned. No fresh or old blood. The scope was then advanced into the duodenum until we reached the third portion. Again, I examined the area very closely. No evidence of glass or abrasions. The scope was then withdrawn from the patient. The patient tolerated the procedure well and was recovered in the GI recovery area. IMPRESSION: 1. Complete upper endoscopy to distal duodenum. 2. No foreign body seen within the upper GI tract. FOLLOWUP: 1. Okay to advance diet. 2. If abdominal pain persists, then I would recommend a CT abdomen and pelvis. Thank you very much for this consult. [id number]/[facility] #: [id number] LAYNE
== END 2019-09-13 18:57 | disposition home or self-care (01) ==
LOC: ED 14:35
DX: R10.13 Epigastric pain (principal); T18.9XXA Foreign body of alimentary tract, part unspecified, initial encounter; X58.XXXA Exposure to other specified factors, initial encounter; Y92.9 Unspecified place or not applicable; Z87.442 Personal history of urinary calculi; Z87.891 Personal history of nicotine dependence
CPT/HCPCS: 36415; 71045; 74019; 80048; 83690; 84702; 85025; 99156; 99157; 99283; A9270-GY; J1200; J2250; J3010